=== PATIENT | male | born 1945 | race Hispanic/Latino ===

== ENCOUNTER 2022-06-12 18:18 | Emergency (ER) | payer BC, MEDICARE ==
[~2022-06-12 18:18] MED LIST: Iopamidol 370 76% 100 ML VIAL ONE
[2022-06-12 18:59] LABS: INR-International Normal Ratio 1.1; PTT 33.3 sec (22.9-36.1); Prothrombin Time 14.7 sec (12.0-14.7)
[2022-06-12] MEDS ORDERED: Sodium Chloride 0.9% 1,000 ML BAG ONE (19:10)
[2022-06-12] MEDS ORDERED: Acetaminophen 500 MG TAB ONE (19:10)
[2022-06-12 19:11] LABS: ALT (SGPT) 11 U/L (8-55); AST (SGOT) 10 U/L (5-34); Albumin 3.3 g/dL (3.4-4.8); Alkaline Phosphatase 54 U/L (40-110); Anion Gap 13 mmol/L (10-20); BUN (Urea Nitrogen) 17 mg/dL (8.4-25.7); Bilirubin, Total 0.4 mg/dL (0.2-1.2); Calc. Creatinine Clearance 0 mL/min (70-130); Calcium 8.2 mg/dL (7.8-10.44); Carbon Dioxide 19 mmol/L (23-31); Chloride 113 mmol/L (98-107); Estimated GFR 74; Globulin 2.5 g/dL (2.4-3.5); Glucose 107 mg/dL (83-110); Lipase 9 U/L (8-78); Magnesium 1.8 mg/dL (1.6-2.6); Potassium 3.4 mmol/L (3.5-5.1); Protein, Total 5.8 g/dL (5.8-8.1); Sodium 142 mmol/L (136-145)
[2022-06-12 19:19] LABS: Hemoglobin 13.1 g/dL (14.0-18.0); Mean Corpuscular Hemoglobin 30.3 pg (27.0-31.0); Mean Corpuscular Volume 91.7 fL (78.0-98.0); Mean Platelet Volume 7.4 fL (7.4-10.4); Platelet Count 260 thou/uL (130-400); RBC Distribution Width 12.3 % (11.5-14.5); Red Blood Cell (RBC) Count 4.34 mill/uL (4.70-6.10)
[2022-06-12 19:20] LABS: Band 7 % (5-11); Base Excess-Venous -4.1 mmol/L (-2.0 to 3.0); Bicarbonate (HCO3v) 21.5 mmol/L (22.0-28.0); CO2 Tension (PvCO2) 40.3 mmHg (42.0-51.0); Calcium, Ionized 1.12 mmol/L (1.15-1.33); Chloride 116 mmol/L (98-107); Eosinophils 1 % (0-10); Hemoglobin - Calc 14.4 g/dL (14.0-18.0); Lymphocytes 4 % (21-51); MDiff Complete? YES; Metamyelocyte 1 % (0-0); Monocytes 4 % (0-10); Neutrophil 81 % (42-75); Platelet Morphology Comment Appears Adequate; Potassium 3.4 mmol/L (3.5-5.1); RBC Morphology Normal; Reactive Lymphocytes 2 % (0-10); Sodium 147 mmol/L (138-145); T. Carbon Dioxide 22.7 mmol/L (22.0-28.0); vO2 Saturation-calc 96.4 % (60.0-85.0)
[2022-06-12 19:45] LABS: SARS-CoV-2 NAA Rapid Test DETECTED (NotDetected)
[2022-06-12 20:26] LABS: Bilirubin Negative (Negative); Blood, Urine Trace (Negative); Clarity Clear (Clear); Glucose, Urine (Dipstick) Negative (Negative); Ketone, Urine Negative (Negative); Leukocyte Negative (Negative); Nitrite Negative (Negative); Protein, Urine (Dipstick) Negative (Neg-Trace); RBC/HPF 0-3 HPF (0-3); Squamous Epithelial 0-3 HPF (0-3); Urobilinogen 0.2 mg/dL (Less than 2); WBC/HPF None Seen HPF (0-3)
[2022-06-13 17:12] LABS: Campy jejuni + coli by PCR Negative (Negative); STEC Shiga Toxin 1+2 Negative (Negative); Salmonella spp. by PCR Negative (Negative); Shigella spp + EIEC by PCR Negative (Negative)
== END 2022-06-12 21:55 | disposition home or self-care (01) ==
LOC: MADERS 18:18
DX: U07.1 COVID-19 (principal); E86.0 Dehydration; I10 Essential (primary) hypertension; E78.5 Hyperlipidemia, unspecified; E78.00 Pure hypercholesterolemia, unspecified; F17.210 Nicotine dependence, cigarettes, uncomplicated; Z86.718 Personal history of other venous thrombosis and embolism; Z85.46 Personal history of malignant neoplasm of prostate; Z79.899 Other long term (current) drug therapy
CPT/HCPCS: 36415; 51701; 70450; 71045; 74177; 80053; 81003; 81015; 82330; 82803; 83605; 83690; 83735; 83880; 84484; 85025; 85610; 85730; 87040; 87086; 87505; 93005; J7050; Q9967; U0002